=== PATIENT | male | born 1985 | race Caucasian/White ===

== ENCOUNTER 2020-05-29 23:58 | Emergency (ER) | payer OTHER | END 2020-05-30 01:11 | disposition left against medical advice (07) | LOC: ER1 23:58 | DX: G43.909 Migraine, unspecified, not intractable, without status migrainosus (principal); Z53.21 Procedure and treatment not carried out due to patient leaving prior to being seen by health care provider ==

== ENCOUNTER 2020-07-11 18:08 | Emergency (ER) | payer OTHER | END 2020-07-11 20:33 | disposition home or self-care (01) | LOC: ER1 18:08 | DX: M25.562 Pain in left knee (principal); F17.210 Nicotine dependence, cigarettes, uncomplicated; Z79.899 Other long term (current) drug therapy; Z88.1 Allergy status to other antibiotic agents | CPT/HCPCS: 73562; 99283 ==